=== PATIENT | female | born 1930 | race Caucasian/White ===

== ENCOUNTER 2017-02-27 11:49 | Emergency (ER) | payer MEDICARE ==
--- NOTE | 2017-02-27 13:49 | RAD ---
Indication: Swelling and pain post twisting fall. Comparison: May 02, 2012 RIGHT lower leg radiographs. Technique: AP, mortise, and lateral views RIGHT ankle. Report: Bone density appears decreased throughout. No cortical disruption or suspicious trabecular irregularity to suggest fracture. Normal articular alignment. No suggestion of talocrural joint effusion. Polyarticular degenerative arthropathy with joint space narrowing most prominent at the talonavicular articulation where it is severe with associated prominent dorsal osteophytosis as well as subchondral sclerosis and cystic change. Soft tissue swelling most prominent over the lateral malleolus. IMPRESSION: Lateral soft tissue swelling without evidence for fracture or malalignment.
--- NOTE | 2017-02-27 13:59 | UC ---
Lower Extremity/Ankle HPI - HPI Summary HPI Summary: patient tripped rolling her right ankle in and under her body, two days ago, large amount of swelling on the top and lateral side of her right foot. - History of Current Complaint Hx Obtained From: Patient ?: No Onset/Duration: Sudden Onset, Lasting Days Severity Initially: Moderate Severity Currently: Moderate Aggravating Factor(s): Standing, Ambulation Alleviating Factor(s): Rest Able to Bear Weight: Yes - Risk Factors Gout Risk Factors: Negative <Fawn Fam - Last Filed: 02/27/17 13:54> <Mojgan Rivera - Last Filed: 02/27/17 14:10> - History of Current Complaint Chief Complaint: UCLowerExtremity Stated Complaint: FOOT INJURY Time Seen by Provider: 02/27/17 13:09 - Allergies/Home Medications Allergies/Adverse Reactions: Allergies Allergy/AdvReac Type Severity Reaction Status Date / Time Amoxicillin [From Augmentin] Allergy Intermediate GI Upset Verified 02/27/17 13: 19 Clavulanic Acid Allergy Intermediate GI Upset Verified 02/27/17 13:19 [From Augmentin] Penicillins [PCN] Allergy Intermediate GI Upset Verified 02/27/17 13:19 Sulfa Drugs Allergy Intermediate GI Upset Verified 02/27/17 13:19 Antihemophilic Factor Allergy GI Upset Verified 02/27/17 13:19 [From Recombinate] Hydrocodone Allergy Nausea And Verified 02/27/17 13:19 Vomiting PMH/Surg Hx/FS Hx/Imm Hx Previously Healthy: Yes Cardiovascular History Of: Reports: Cardiac Disorders - pace maker, Hypertension , Pacemaker/ICD, Congestive Heart Failure GI/ History Of: Reports: Kidney Stones - BILATERAL Cancer History Of: Denies: Breast Cancer - Surgical History Surgical History: Yes Surgery Procedure, Year, and Place: hysterectomy, pacemaker, knee and foot surgery. LEFT KNEE MENISCUS 2006 - Family History Known Family History: Positive: Hypertension - Social History Alcohol Use: Occasionally Alcohol Amount: GLASS WINE Substance Use Type: None Smoking Status (MU): Never Smoked Tobacco Have You Smoked in the Last Year: No <Fawn Fam - Last Filed: 02/27/17 13:54> Review of Systems Constitutional: Negative Skin: Bruising Eyes: Negative ENT: Negative Respiratory: Negative Cardiovascular: Negative Gastrointestinal: Negative Genitourinary: Negative Motor: Negative Neurovascular: Decreased Sensation - top fo foot and toes Musculoskeletal: Arthralgia, Edema, Myalgia Neurological: Negative Psychological: Negative All Other Systems Reviewed And Are Negative: Yes <Fawn Fam - Last Filed: 02/27/17 13:54> Physical Exam Triage Information Reviewed: Yes Appearance: Well-Appearing, Well-Nourished, Pain Distress Vital Signs: Initial Vital Signs Temp 97.4 F 02/27/17 13:14 Pulse 93 02/27/17 13:14 Resp 16 02/27/17 13:14 BP 167/77 02/27/17 13:14 Pulse Ox 96 02/27/17 13:14 Vital Signs Reviewed: Yes Eye Exam: Normal Eyes: Positive: Conjunctiva Clear ENT Exam: Normal ENT: Positive: Hearing grossly normal, Pharynx normal, TMs normal Dental Exam: Normal Neck exam: Normal Neck: Positive: Supple, Nontender, No Lymphadenopathy Respiratory Exam: Normal Respiratory: Positive: Chest non-tender, Lungs clear, Normal breath sounds Cardiovascular Exam: Normal Cardiovascular: Positive: RRR, No Murmur, Pulses Normal Abdominal Exam: Normal Abdomen Description: Positive: Nontender, No Organomegaly, Soft Bowel Sounds: Positive: Present Musculoskeletal: Positive: ROM Limited @ - in dorsi flexion and pronation, Edema @ - right ankle Neurological Exam: Normal Neurological: Positive: Alert, Muscle Tone Normal Psychological Exam: Normal Skin: Positive: Other - brusiing on top of right foot <Fawn Fam - Last Filed: 02/27/17 13:54> Vital Signs: Initial Vital Signs Temp 97.4 F 02/27/17 13:14 Pulse 93 02/27/17 13:14 Resp 16 02/27/17 13:14 BP 167/77 02/27/17 13:14 Pulse Ox 96 02/27/17 13:14 <Mojgan Rivera - Last Filed: 02/27/17 14:10> Lower Extremity Course/Dx - Course Course Of Treatment: hx obtained, exam performed, meds reviewed, dacia and gel spint applied. - Differential Dx/Diagnosis Differential Diagnosis/HQI/PQRI: Arthritis, Contusion, Dislocation, Fracture ( Closed), Infection, Sprain, Strain Provider Diagnoses: right lateral ankle sprain. foot swelling <Fawn Fam - Last Filed: 02/27/17 13:54> Discharge <Fawn Fam - Last Filed: 02/27/17 13:54> <Mojgan Rivera - Last Filed: 02/27/17 14:10> - Discharge Plan Condition: Stable Disposition: HOME Patient Education Materials: Ankle Sprain (ED), Ankle Stirrup Splint (ED) Referrals: Arin Guzman MD [Primary Care Provider] - Additional Instructions: 1. rest, heat the areawith warm foot soaks, use dacia wrap for compression when up and around 2. continue with ibuprofen for pain. Attestation Statement User Type: Provider - I was available for consult. This patient was seen by the SUZI. The patient was not presented to, seen by, or examined by me. <Mojgan Rivera - Last Filed: 02/27/17 14:10>
[2017-02-27 14:16] VITALS: BP 142/74
== END 2017-02-27 14:15 | disposition home or self-care (01) ==
LOC: UCEAST 11:49
DX: S93.401A Sprain of unspecified ligament of right ankle, initial encounter (principal); W01.0XXA Fall on same level from slipping, tripping and stumbling without subsequent striking against object, initial encounter; M25.474 Effusion, right foot; I10 Essential (primary) hypertension; I50.9 Heart failure, unspecified; Z87.442 Personal history of urinary calculi; Z95.0 Presence of cardiac pacemaker; Z88.5 Allergy status to narcotic agent; Z88.3 Allergy status to other anti-infective agents; Z88.0 Allergy status to penicillin; Z88.2 Allergy status to sulfonamides
CPT/HCPCS: 99213; G0463

== ENCOUNTER → 2019-05-01 08:01 | Day surgery (SDC) | payer MEDICARE ==
[~2019-05-01 08:01] MED LIST: Clindamycin 600 MG IVPREMIX(* 600 MG/50 ML SDV IV ONE; Lidocaine 1% INJ* 10 MG/ML 30 ML SDV ONE; Midazolam* 1 MG/ML 5 ML VIAL (5 MG) ONE; fentaNYL* 50 MCG/ML 2 ML VIAL (100 MCG VIAL) ONE
[2019-05-01 12:15] VITALS: BP 172/74
--- NOTE | 2019-05-02 11:37 | OP ---
DATE OF OPERATION: 05/01/19 - [facility] CATH DATE OF : 30 SURGEON: Antonella Mccarty MD. ANESTHESIA: MAC. PRE-OP DIAGNOSIS: Sick sinus syndrome with existing pacer replacement. POST-OP DIAGNOSIS: Sick sinus syndrome with existing pacer replacement. OPERATIVE PROCEDURE: Pacemaker generator change. ESTIMATED BLOOD LOSS: Less than 5 cc. COMPLICATIONS: None. INDICATIONS: The indications, risks, and benefits have been discussed with the patient in the office and she was amenable to proceeding. DESCRIPTION OF PROCEDURE: The existing device is in the left subclavian fossa. This area was prepped and draped in the usual sterile fashion and a time-out procedure was called. The patient received Versed and fentanyl and 1% lidocaine, documented separately. Following local anesthesia, using a 10-blade knife an incision was made inferior to the existing incision taking care avoid leads. Using Metzenbaum scissors, the incision was extended to the level of the device. A small shanique was made in the fibrous capsule and using Metzenbaum scissors, again taking care to avoid any leads. The neck was extended medially and laterally. The device was then explanted and leads inspected and appeared without damage. The leads were attached from the existing generator and attached to interrogation device. The pacing and sensing thresholds of both leads were checked and found to be good. The leads were then attached to the new generator. The existing pocket was copiously irrigated. The device was placed in the pocket and closed with 3 layers, interrupted 2-0 resorbable suture, followed by running 2-0 resorbable suture, followed by running 4- 0 resorbable suture, followed by casey and external dressings. The decision was made to use a smaller [employer] device because of the patient' s thin body habitus and thin skin over the superior medial portion of the explanted larger device. FINDINGS: The explanted generator was a [employer], model 5826, serial #[id number], implanted on 04/22/08. The new device is a [employer], model 5820, serial #[id number]. The existing atrial lead was a [employer], model 1888TC/52, serial #[id number]. The existing ventricular lead was a [employer], model 1888TC/58, serial #[id number]. For the atrial lead, there were no P waves sensed. The atrial lead impudence was 359 ohms and the atrial pacing threshold was 0.5 V at 0.4 milliseconds. The existing ventricular lead had R waves sensed at 4.8 millivolts with a ventricular lead impedance of 410 ohms and a ventricular pacing threshold of 1.5 V at 0.4 milliseconds. CONCLUSION: Successful dual-chamber pacemaker generator change without complications. Again, the patient was hemodynamically stable throughout the procedure during recovery and returned to the cardiology holding area. [id number]/CPS #: [id number] CELESTE
== END | disposition home or self-care (01) ==
LOC: CHICATH 08:01
PROVIDERS: ATTEND Specialist
DX: Z45.010 Encounter for checking and testing of cardiac pacemaker pulse generator [battery] (principal); I49.5 Sick sinus syndrome; I48.0 Paroxysmal atrial fibrillation; Z79.899 Other long term (current) drug therapy; Z79.01 Long term (current) use of anticoagulants; Z88.0 Allergy status to penicillin; Z88.8 Allergy status to other drugs, medicaments and biological substances; I34.0 Nonrheumatic mitral (valve) insufficiency; I10 Essential (primary) hypertension; R06.02 Shortness of breath
CPT/HCPCS: 33228; 88300; 99156; 99157; C1785; J2250; J3010

== ENCOUNTER 2019-05-03 14:36 | Inpatient (IN) | payer MEDICARE ==
--- OUTSIDE RECORDS SUMMARY | 2019-05-03 14:55 | XMS REPORT | Continuity of Care Document ---
:1930 External Reference #:[id number] Author Name Segundo Costello M.D. Address [address] [place] [address] Care Team Providers Name Role Phone Arin Guzman M.D. Primary Care Physician Unavailable Payers Date Identification Numbers Payment Provider Subscriber Policy Number: [id number] [facility] Luiza Velez PayID: [id number] [id number] [place] [id number] Problems Active Problems Provider Date Implantation of cardiac pacemaker Onset: Arthritis Onset: Allergic rhinitis Onset: Type 2 diabetes mellitus Onset: Tear film insufficiency Raudel Blum M.D. Onset: 03/13/2015 Pseudophakia Raudel Blum M.D. Onset: 03/13/2015 Carcinoma of bladder Onset: Malignant melanoma of skin of face Onset: Vitreous degeneration Kirsten Martinez O.D. Onset: 03/13/2015 Diplopia Kirsten Martinez O.D. 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 Solution Vitamin C 1 by mouth every Unknown 500mg Capsules day Dilt-XR Take 1 Capsule By Unknown 120mg Caps ER Mouth Every Day 24HR Fluocinonide Apply 1 To 2 Unknown 0.05% Times Every Day Solution as Needed For Itch For Up To Two Weeks Then Break For 1 Week Ipratropium [place] 2 Sprays Unknown 0.06% Into Each Nostril Solution Two Times Daily Eliquis Unknown 5mg Tablets Multaq Unknown 400mg Tablets Fluticasone Propionate Unknown Multiple Vitamin Unknown Tablets History Medications Aspirin Unknown - 81mg Tablets 03/10/2019 Diltiazem HCL Unknown - 03/10/2019 Ipratropium [place] Unknown - 03/10/2019 Viactiv Unknown - 12/13/2015 Refresh 1 drop ou twice Kirsten JRiki - daily Michelle O.Salvador 03/10/2019 Methocarbamol Take 1 Tablet By Unknown - 500mg Tablets Mouth AT Bedtime as 03/10/2019 Needed (Muscle Relaxer) Triamcinolone Acetonide Apply Two Times Unknown - 0.1% Daily as Needed For 03/10/2019 Cream Itching Fluzone High-Dose To Be Given By Unknown - 0.5ml Yakelin Pharmacist Per 03/10/2019 Standing Order Procedures Date Code Description Status 03/11/2019 39608 Est Patient Comprehensive Exam Completed 03/25/2016 54278 Est Patient Comprehensive Exam Completed 12/14/2015 54786 Determination Of Refractive State Completed 09/21/2015 46892 Determination Of Refractive State Completed 09/21/2015 35663 Est Patient Comprehensive Exam Completed 03/13/2015 86520 Est Patient Comprehensive Exam Completed 02/26/2013 89843 Est Patient Comprehensive Exam Completed 10/28/2011 86173 Est Patient Comprehensive Exam Completed 09/16/2010 14863 Est Patient Comprehensive Exam Completed Encounters Type Date Location Provider Dx Diagnosis Office Visit 12/14/2015 Royal Weston MD, Kirsten Martinez, H53.2 Diplopia 11:00a russell See Plan of Treatment 04/16/2019 - Segundo Costello M.D.H53.2 DiplopiaComments:Smoking can increase the risk of developing or worsening any eye related disease, as well as affect your overall health. If you are a smoker, we strongly recommend that you quit.If you are not a smoker, we strongly recommend that you do not start.E11.9 Type 2 diabetes mellitus without complicationsFollow up:1 Year Follow Up DFE You can expect to have your eyes dilated at your next visit. If Dr. Costello orders any additional testing, it may require extra time. We recommend that you bring sunglasses, as dilation drops often make you light sensitive until they wear off. We always recommend you bring someone to drive you home if you are uncomfortable driving with your eyes dilated. If you have any questions before your next visit, feel free to call our office at .
--- OUTSIDE RECORDS SUMMARY | 2019-05-03 14:55 | XMS REPORT | Continuity of Care Document ---
:1930 External Reference #:[id number] Author Name Zohra Marcelo Care Team Providers Name Role Phone Chetan Guzman MD Primary Care Physician Unavailable Payers Date Identification Numbers Payment Provider Subscriber Policy Number: [id number] [employer] Mason Lito Velez PayID: [id number] [address] [address] Attn: [place] [address] Effective: 1999 Policy Number: [id number] Medicare [place] Lito Velez Expires: 2017 PayID: [id number] [address] [place] [address] Effective: 2014 Policy Number: [facility] Lito Velez [id number] Expires: 2017 PayID: [id number] [address] [place] [address] Problems Active Problems Provider Date Sinus node dysfunction Antonella Mccarty M.D. Onset: 08/19/2013 Atrial fibrillation Antonella Mccarty M.D. Onset: 08/19/2013 Difficulty breathing Antonella Mccarty M.D. Onset: 08/19/2013 Cardiac pacemaker in situ Antonella Mccarty M.D. Onset: 09/23/2013 Mitral valve disorder Antonella Mccarty M.D. Onset: 09/23/2013 Syncope and collapse Antonella Mccarty M.D. Onset: 01/06/2014 Aortic valve disorder Antonella Mccarty M.D. Onset: 03/03/2014 Localized, primary osteoarthritis Sandi Alexis, M.D. Onset: 08/10/2015 Localized, primary osteoarthritis of the pelvic Sandi Espinoza M.D. Onset: 03/2015 region and thigh Knee joint effusion Sandi Espinoza M.D. Onset: 08/10/2015 Essential hypertension Antonella Mccarty M.D. Onset: 09/07/2015 Paroxysmal atrial fibrillation Antonella Mccarty M.D. Onset: 02/10/2017 Trochanteric bursitis Sandi Espinoza M.D. Onset: 08/03/2018 Gluteal tendinitis Sandi Espinoza M.D. Onset: 08/03/2018 Family History Date Family Member(s) Observation Comments General Cancer General Heart Disease father, bro General Aortic Stenosis Father due to Heart Disease () - and lung disease; age 72 Mother due to Heart Disease () - age 73 Siblings 1 Sister- NILS Douglas implanted 10/24 First Brother due to asbestosis () - at age 70 Third Brother due to Unknown Causes () - was born crippled and at age 25 First Sister due to Heart Disease () - and lung disease, at age 70 Paternal Grandmother due to Isabel's () chorea Social History Type Date Description Comments Sex Unknown Marital Status Lives With Alone Occupation Retired Tobacco Use Start: Unknown Never Smoked Pt denies ever Cigarettes smoking cigar, pipe, e-cigarettes, or using chewing tobacco. 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 Eliquis 1 tablet by 60tabs Antonella Mccarty, 02/21/2018 2.5mg Tablets mouth twice a M.D. day. blood thinner. Multaq 1 by mouth 180tabs Antonella Mccarty, 11/12/2012 400mg Tablets twice a day M.D. Diltiazem HCL ER 1 by mouth 90caps Antonella Mccarty, 11/12/2012 120mg twice a day M.D. Caps ER 24HR Multivitamins 1 po qd 90tabs Celekeara Fierro, 09/10/2009 Tablets M.D. Ipratropium [place] 2 sprays bid Unknown prn Nasal [place] Fluticasone Propionate 2 sprays each Unknown nostril bid 50mcg/Act Suspension Vit C 1 po qd Unknown 1000mg Tablets Viactiv 2 po qd Unknown Chewtabs Vitamin D3 1 by mouth Unknown 1000Unit every day Tablets History Medications Azithromycin 2 tabs po on 6tabs 461.0 Cele Vadim, 01/08/2010 - 250mg day 1; 1 tab po M.D. 08/19/2013 Tablets qd on days 2-5 Ranitidine HCL 1 tab po bid 60tabs 787.1 [facility], 09/10/2009 - 150mg prn M.D. 09/20/2013 Tablets Viactiv Multi-Vitamin 1 po bid 60units Cele Fierro, 09/10/2009 - M.D. Unknown Chewtabs Sotalol HCL 1 po bid Cele Vadim, 09/10/2009 - 80mg M.D. 11/12/2012 Tablets Aspirtab 1 tab po daily 30tabs Cele Vadim, 09/10/2009 - 324mg Tablets M.D. 08/19/2013 DR Melatonin 1 po qhs 90caps Unknown - 3mg Capsules 04/07/2015 Oxygen hs Unknown - 09/07/2014 Aspirin 81 One daily Unknown - 03/05/2018 Carisoprodol 1 tab by mouth Unknown - 250mg daily prn 04/07/2015 Tablets Tramadol HCL 1-2 tablets Unknown - 50mg every 6 hours 04/07/2015 Tablets as needed Vitamin D-3 1 by mouth Unknown - 5000Unit every day 01/31/2019 Tablets Flonase Allergy spray 1 spray Unknown - Relief in each nostril 01/18/2018 50mcg/Act daily Suspension Medications Administered in Office Medication SIG Qnty Indications Ordering Provider Date Depomedrol 40MG Sandi Espinoza M.D. 02/08/2019 Injection Depomedrol 40MG Sandi Espinoza M.D. 08/03/2018 Injection Depomedrol 80MG Sandi Espinoza M.D. 04/17/2015 Injection Depomedrol 80MG Sandi Espinoza M.D. 04/08/2015 Injection Technetium TC 99M Tetrofosmin, Per Antonella Mccarty M.D. 09/02/2013 Unit Dose Up To 40 Millicuries Injection Immunizations CPT Code Status Date Vaccine Lot # [id number] Given 09/10/2009 Pneumonia Vaccine [id number] Vital Signs Date Vital Result Comment 04/26/2019 2:33pm Height 63.75 inches 5'3.75" Weight 123.75 lb with shoes Heart Rate 64 /min regular, radial BP Systolic Sitting 148 mmHg LA, reg cuff BP Diastolic Sitting 62 mmHg LA, reg cuff BP Systolic Standing 120 mmHg LA, reg cuff BP Diastolic Standing 70 mmHg LA, reg cuff BMI (Body Mass Index) 21.4 kg/m2 Ejection Fraction 65% echo 07/25/14 02/08/2019 3:01pm Height 63.75 inches 5'3.75" Weight 123.00 lb Heart Rate 69 /min BP Systolic 136 mmHg BP Diastolic 60 mmHg Respiratory Rate 16 /min Body Temperature 98.0 F Pain Level 9 BMI (Body Mass Index) 21.3 kg/m2 02/01/2019 1:42pm Height 63.25 inches 5'3.25" Weight 124.00 lb w/o shoes Heart Rate 76 /min BP Systolic Sitting 130 mmHg Lue reg cuff BP Diastolic Sitting 68 mmHg Lue reg cuff BP Systolic Standing 135 mmHg Lue reg cuff BP Diastolic Standing 70 mmHg Lue reg cuff Respiratory Rate 16 /min BMI (Body Mass Index) 21.8 kg/m2 08/03/2018 1:35pm Height 63.25 inches 5'3.25" Weight 122.00 lb Heart Rate 72 /min BP Systolic 116 mmHg BP Diastolic 64 mmHg BMI (Body Mass Index) 21.4 kg/m2 06/29/2018 11:50am Height 63.25 inches 5'3.25" Weight 120.00 lb Heart Rate 78 /min BP Systolic Sitting 140 mmHg lue reg cuff BP Diastolic Sitting 68 mmHg lue reg cuff BP Systolic Standing 132 mmHg BP Diastolic Standing 68 mmHg Respiratory Rate 16 /min BMI (Body Mass Index) 21.1 kg/m2 Ejection Fraction 65% 07/25/2014 echo 01/19/2018 11:16am Height 63.25 inches 5'3.25" Weight 121.38 lb W/Boots Heart Rate 72 /min BP Systolic 140 mmHg L/Arm Reg Cuff BP Diastolic 78 mmHg L/Arm Reg Cuff BP Systolic Standing 138 mmHg L/Arm Reg Cuff BP Diastolic Standing 74 mmHg L/Arm Reg Cuff BMI (Body Mass Index) 21.3 kg/m2 Ejection Fraction 65% Echocardiogram 07/25/2014 04/07/2017 8:06am Height 63.25 inches 5'3.25" Weight 123.38 lb w/o shoes Heart Rate 66 /min BP Systolic Sitting 126 mmHg LA reg cuff BP Diastolic Sitting 64 mmHg LA reg cuff BP Systolic Standing 130 mmHg LA reg cuff BP Diastolic Standing 68 mmHg LA reg cuff BMI (Body Mass Index) 21.7 kg/m2 Ejection Fraction 65% echo 07/25/14 02/10/2017 10:21am Height 63.25 inches 5'3.25" Weight 123.00 lb w/o shoes Heart Rate 60 /min reg BP Systolic Sitting 122 mmHg Rue, reg cuff BP Diastolic Sitting 80 mmHg Rue, reg cuff BP Systolic Standing 128 mmHg Rue BP Diastolic Standing 78 mmHg Rue Respiratory Rate 16 /min BMI (Body Mass Index) 21.6 kg/m2 Ejection Fraction 65% as of 07/2014 echo 04/29/2016 8:54am Height 63.25 inches 5'3.25" Weight 124.00 lb Heart Rate 70 /min BP Systolic 132 mmHg Ra reg cuff BP Diastolic 72 mmHg Ra reg cuff BMI (Body Mass Index) 21.8 kg/m2 Ejection Fraction 65% echo 07/25/14 09/07/2015 8:03am Height 63.25 inches 5'3.25" Weight 124.00 lb w/o shoes Heart Rate 70 /min reg BP Systolic Sitting 126 mmHg Rue, reg cuff BP Diastolic Sitting 70 mmHg Rue, reg cuff BP Systolic Standing 120 mmHg Rue BP Diastolic Standing 70 mmHg Rue Respiratory Rate 18 /min BMI (Body Mass Index) 21.8 kg/m2 Ejection Fraction 65% as of echo 08/10/2015 8:45am Height 63.25 inches 5'3.25" Weight 122.00 lb Pain Level 8 BMI (Body Mass Index) 21.4 kg/m2 06/08/2015 10:47am Height 63.25 inches 5'3.25" Weight 122.00 lb Heart Rate 71 /min BP Systolic 133 mmHg BP Diastolic 69 mmHg Pain Level 0 BMI (Body Mass Index) 21.4 kg/m2 04/17/2015 8:08am Height 63.25 inches 5'3.25" Weight 122.00 lb Heart Rate 83 /min BP Systolic 122 mmHg BP Diastolic 73 mmHg Pain Level 0 BMI (Body Mass Index) 21.4 kg/m2 04/08/2015 1:26pm Height 63.25 inches 5'3.25" Weight 122.00 lb Heart Rate 78 /min BP Systolic 134 mmHg BP Diastolic 65 mmHg Pain Level 7 BMI (Body Mass Index) 21.4 kg/m2 03/23/2015 8:39am Height 63.25 inches 5'3.25" Weight 122.00 lb w/o shoes Heart Rate 70 /min reg BP Systolic Sitting 108 mmHg LA, reg cuff BP Diastolic Sitting 60 mmHg LA, reg cuff BP Systolic Standing 110 mmHg LA BP Diastolic Standing 60 mmHg LA Respiratory Rate 16 /min BMI (Body Mass Index) 21.4 kg/m2 Ejection Fraction 65% 07/25/2014 09/08/2014 7:58am Height 63.25 inches 5'3.25" Weight 121.00 lb no shoes Heart Rate 68 /min BP Systolic Sitting 120 mmHg LA, reg cuff BP Diastolic Sitting 80 mmHg LA, reg cuff BP Systolic Standing 112 mmHg LA BP Diastolic Standing 74 mmHg LA Respiratory Rate 16 /min BMI (Body Mass Index) 21.3 kg/m2 03/03/2014 8:02am Height 63.25 inches 5'3.25" Weight 119.00 lb without shoes Heart Rate 68 /min BP Systolic Sitting 120 mmHg LA reg cuff BP Diastolic Sitting 66 mmHg LA reg cuff BP Systolic Standing 104 mmHg LA reg cuff BP Diastolic Standing 66 mmHg LA reg cuff Respiratory Rate 17 /min BMI (Body Mass Index) 20.9 kg/m2 01/06/2014 3:52pm Height 64 inches 5'4" Weight 120.50 lb Heart Rate 64 /min reg BP Systolic Sitting 150 mmHg reg cuff right arm BP Diastolic Sitting 84 mmHg reg cuff right arm BP Systolic Standing 138 mmHg reg cuff right arm BP Diastolic Standing 86 mmHg reg cuff right arm BMI (Body Mass Index) 20.7 kg/m2 09/23/2013 7:56am Height 63.5 inches 5'3.50" Weight 120.00 lb Heart Rate 72 /min BP Systolic Sitting 122 mmHg Ra reg cuff BP Diastolic Sitting 74 mmHg Ra reg cuff BP Systolic Standing 114 mmHg Ra BP Diastolic Standing 70 mmHg Ra Respiratory Rate 18 /min BMI (Body Mass Index) 20.9 kg/m2 08/19/2013 10:53am Height 64 inches 5'4" Weight 123.50 lb Heart Rate 76 /min regular BP Systolic Sitting 134 mmHg reg cuff, right arm BP Diastolic Sitting 70 mmHg reg cuff, right arm BP Systolic Standing 126 mmHg reg cuff right arm BP Diastolic Standing 70 mmHg reg cuff right arm Respiratory Rate 20 /min BMI (Body Mass Index) 21.2 kg/m2 01/08/2010 2:52pm Weight 127.00 lb Heart Rate 72 /min BP Systolic Sitting 132 mmHg BP Diastolic Sitting 70 mmHg Respiratory Rate 18 /min Body Temperature 98.2 F 09/10/2009 8:52am Weight 124.00 lb Heart Rate 72 /min BP Systolic Sitting 146 mmHg BP Diastolic Sitting 88 mmHg Respiratory Rate 16 /min Body Temperature 98.6 F Results Test Date Facility Test Result H/L Range Note Vitamin D 1,25 04/07/2017 [facility] Vitamin D Total 63.9 ng/mL High 30-50 1 And Vitamin D,[address]) [place], [place] [id number] [phone] Vitamin D, 1,25 Dihydroxy 52 pg/mL N 18-78 2 Thyroid Panel 02/10/2017 [facility] Free T4 (Free 0.96 ng/dL N 0.61-1.[address] Thyroxine) [place] [address] [phone] Thyroxine 7.78 ?g/dL N 6.09-12.23 TSH (Thyroid Stim Horm) 1.88 mcIU/mL N 0.34-5.60 Vitamin B12 And 02/10/2017 [facility] Vitamin B12 1006 pg/mL High 180-917 3 Folate Serum [address] [place] [address] [phone] Folic Acid (Folate) > 20.00 ng/mL N >3.99 Comp Metabolic Panel 02/10/2014 [facility] Sodium 137 mmol/L N 133-145 [address] [place] [address] [phone] Potassium 3.7 mmol/L N 3.7-5.6 Chloride 103 mmol/L N 101-111 Co2 Carbon Dioxide 29 mmol/L N 22-32 Anion Gap 5 mmol/L N 2-11 Glucose 131 mg/dL High 70-100 Blood Urea Nitrogen 22 mg/dL N 6-24 Creatinine 0.92 mg/dL N 0.51-0.95 BUN/Creatinine Ratio 23.9 High 8-20 Calcium 8.8 mg/dL N 8.6-10.3 Total Protein 6.8 g/dL N 6.4-8.9 Albumin 3.9 g/dL N 3.2-5.2 Globulin 2.9 g/dL N 2-4 Albumin/Globulin Ratio 1.3 N 1-3 Total Bilirubin 0.30 mg/dL N 0.2-1.0 Alkaline Phosphatase 78 U/L N 34-104 Alt 13 U/L N 7-52 Ast 19 U/L N 13-39 Egfr Non- 58.3 N >60 Egfr 75.0 N >60 4 Laboratory test 02/10/2014 [facility] Phosphorus 3.9 mg/dL N 2.5-5.0 finding [address] [place] [address] [phone] Magnesium 1.8 mg/dL Low 1.9-2.7 Creatine Kinase 68 U/L N 10-223 Vitamin B12 667 pg/mL N 180-914 5 Folate > 20.00 ng/mL N >3.99 Free T4 0.80 ng/mL N 0.61-1.12 T4 7.00 g/dL N 6.09-12.23 TSH (Thyroid Stimulating Horm) 2.20 IU/mL N 0.34-5.60 Erythrocyte Sed Rate 16 mm/Hr N 0-40 Aldolase 5.9 U/L N <7.7 6 Homocysteine 8 mcmol/L N 7 T3 Uptake 36 % N 20 - 37 8 Urinalysis W/Microscopic 02/10/2014 [facility] Urine Color Yellow [address] [place] [address] [phone] Urine Appearance Clear N Urine Specific [place] 1.006 Low 1.010-1.030 Urine Esterase Negative N Negative Urine Nitrate Negative N Negative Urine Urobilinogen Negative E.U./dL N Negative Urine Protein Negative mg/dL N Negative Urine pH 5.0 N 5-9 Urine Blood Negative N Negative Urine Ketones Negative mg/dL N Negative Urine Bilirubin Negative N Negative Urine Glucose Negative mg/dL N Negative Urine WBC None Seen N None Seen Urine RBC None Seen N None Seen Urine Epithelial Cells 1+ Squamous /hpf N None Seen Bacteria Urine None Seen N None Seen Urine Culture And 02/10/2014 [facility] Urine Culture (SEE NOTE ) [address] [place] [address] [phone] Urinalysis 01/03/2014 [facility] Urine Color Yellow [address] [place] [address] [phone] Urine Appearance Clear Urine Specific [place] 1.042 High 1.010-1.030 Urine Esterase Trace Abnormal Negative Urine Nitrate Negative Negative Urine Urobilinogen Negative E.U./dL Negative Urine Protein Negative mg/dL Negative Urine pH 7.0 5-9 Urine Blood Negative Negative Urine Ketones Negative mg/dL Negative Urine Bilirubin Negative Negative Urine Glucose Negative mg/dL Negative Urine Microscopic 01/03/2014 [facility] Urine WBC 1+ (<[address] /hpf) [place] [address] [phone] Urine RBC None Seen None Seen Urine Mucus Present /lpf Absent Urine Epithelial Cells 1+ Squamous /hpf None Seen Bacteria Urine 1+ None Seen CBC Auto Diff 01/03/2014 [facility] White Blood 8.2 10^3/uL 4.8-10.[address] [place] [address] [phone] Red Blood Count 4.35 10^6/uL 4.0-5.4 Hemoglobin 13.9 g/dL 12.0-16.0 Hematocrit 41 % 35-47 Mean Corpuscular Volume 93 fL 80-97 Mean Corpuscular Hemoglobin 32 pg High 27-31 Mean Corpuscular HGB Conc 34 g/dL 31-36 Red Cell Distribution Width 14 % 10.5-15 Platelet Count 220 10^3/uL 150-450 Mean Platelet Volume 9 um3 7.4-10.4 Abs Neutrophils 6.8 10^3/uL 1.5-7.7 Abs Lymphocytes 1.0 10^3/uL 1.0-4.8 Abs Monocytes 0.3 10^3/uL 0-0.8 Abs Eosinophils 0 10^3/uL 0-0.6 Abs Basophils 0 10^3/uL 0-0.2 Abs Nucleated RBC 0 10^3/uL Granulocyte % 83.2 % High 38-83 Lymphocyte % 12.2 % Low 25-47 Monocyte % 4.2 % 1-9 Eosinophil % 0.1 % 0-6 Basophil % 0.3 % 0-2 Nucleated Red Blood Cells % 0 Laboratory test 01/03/2014 [facility] Magnesium 1.9 mg/dL 1.9 -2.7 finding [address] [place] [address] [phone] Troponin I < 0.01 ng/mL <0.03 10 TSH (Thyroid Stimulating Horm) 1.81 IU/mL 0.34-5.60 Comp Metabolic Panel 01/03/2014 [facility] Sodium 137 mmol/L 133-145 [address] [place] [address] [phone] Potassium 4.0 mmol/L 3.7-5.6 Chloride 103 mmol/L 101-111 Co2 Carbon Dioxide 28 mmol/L 22-32 Anion Gap 6 mmol/L 2-11 Glucose 99 mg/dL 70-100 Blood Urea Nitrogen 13 mg/dL 6-24 Creatinine 0.80 mg/dL 0.51-0.95 BUN/Creatinine Ratio 16.3 8-20 Calcium 9.0 mg/dL 8.6-10.3 Total Protein 7.4 g/dL 6.4-8.9 Albumin 3.9 g/dL 3.2-5.2 Globulin 3.5 g/dL 2-4 Albumin/Globulin Ratio 1.1 1-3 Total Bilirubin 0.60 mg/dL 0.2-1.0 Alkaline Phosphatase 94 U/L 34-104 Alt 11 U/L 7-52 Ast 19 U/L 13-39 Egfr Non- 68.5 >60 Egfr 88.1 >60 11 Laboratory test 01/03/2014 [facility] Activated 28.8 seconds 24.0-36.1 finding [address] [facility] [place] [address] Thrombo Time [phone] Inr/Protime 01/03/2014 [facility] Inr 0.91 0.85-1.06 [address] [place], [place] [address] [phone] Laboratory test 08/22/2012 [facility] Free T4 0.85 NG/ML 0.61 -1.24 finding [address] [place] [address] [phone] Total T3 1.18 NG/ML 0.5-1.7 TSH (Thyroid Stimulating Horm) 1.76 MIU/ML 0.34-5.60 Comp Metabolic Panel 08/22/2012 [facility] Sodium 138 mmol/L 133-145 [address] [place] [address] [phone] Potassium 4.4 mmol/L 3.5-5.0 Chloride 103 mmol/L 101-111 Co2 Carbon Dioxide 30.0 mmol/L 22-32 Anion Gap 5.0 mmol/L 2-11 Glucose 85 mg/dL 70-100 Blood Urea Nitrogen 13 mg/dL 6-24 Creatinine 1.00 mg/dL 0.50-1.40 BUN/Creatinine Ratio 13.0 8-20 Calcium 9.1 mg/dL 8.1-9.9 Total Protein 6.5 GM/DL 6.2-8.1 Albumin 3.7 GM/DL 3.2-5.2 Globulin 2.8 GM/DL 2-4 Albumin/Globulin Ratio 1.3 1-3 Total Bilirubin 0.8 mg/dL 0.1-1.0 12 Alkaline Phosphatase 83 U/L 30-110 Alt 14 U/L 14-54 Ast 25 U/L 12-42 Egfr Non- 53.2 >60 Egfr 68.4 >60 13 1 Copy Result to: CHETAN GUZMAN ([id number]) 2 ADDITIONAL INFORMATION This test was developed and its performance characteristics determined by [facility] in a manner consistent with CLIA requirements. This test has not been cleared or approved by the U.S. Food and Drug Administration. Test Performed by: [address] [address] 3 Normal Range 180 to 914 Indeterminate Range 145 to 180 Deficient Range <145 4 Because ethnic data is not always readily available, this report includes an eGFR for both -Americans and non- Americans. The National Kidney Disease Education Program (NKDEP) does not endorse the use of the MDRD equation for patients that are not between the ages of 18 and 70, are , have extremes of body size, muscle mass, or nutritional status, or are non- or non-. According to the National Kidney Foundation, irrespective of diagnosis, the stage of the disease is based on the level of kidney function: Stage Description GFR(mL/min/1.73 m(2)) 1 Kidney damage with normal or decreased GFR 90 2 Kidney damage with mild decrease in GFR 60-89 3 Moderate decrease in GFR 30-59 4 Severe decrease in GFR 15-29 5 Kidney failure <15 (or dialysis) 5 Normal Range 180 to 914 Indeterminate Range 145 to 180 Deficient Range <145 6 Test Performed by: [place] [address] Position Classification Specialist: Stef Lincoln III, M.D. 7 -- REFERENCE VALUE -- <=13 (Fasting) Test Performed by: [place] [address] Position Classification Specialist: Stef Lincoln III, M.D. 8 Test Performed by: [address] [address] Position Classification Specialist: Stef Lincoln III, M.D. 9 RUN DATE: 02/12/14 [facility] LAB LIVE PAGE 1 RUN TIME: [address] [place] [id number] Specimen Inquiry Name: MORIS VELEZ : [address]: Chelsi Silver MD Acct: [id number] Unit: [id number] AGE: 83 Location: LAB Re02/10/14 SEX: F Status: REG REF SPEC: [id number] ROB: 02/10/14-1319 [facility] DR: Chelsi Silver MD REQ: [id number] RECD: 02/10/14 STATUS: BLACK KLEIN DR: Antonella Mccarty MD _ SOURCE: URINE SPDESC: ORDERED: Urine Culture QUERIES: Urine Source: Clean Catch Procedure Result Verified Site Urine Culture Final 02/12/14- 1204 ML No Growth Day 2 (<1,000 CFU/mL) END OF REPORT * ML=Testing performed at Main Lab DEPARTMENT OF PATHOLOGY, [address] [place] [address] Adeel Paez M.D. Director [facility] Permit #[id number] 10 Reference Range and Interpretation: TnI (ng/mL) Interpretation Less Than 0.03 ng/mL Not supportive of diagnosis of ND 0.03 - 0.50 ng/mL Indeterminate: suggest serial studies if clinically indicated. Greater than 0.5 ng/mL Consistent with diagnosis of ND 11 Because ethnic data is not always readily available, this report includes an eGFR for both -Americans and non- Americans. The National Kidney Disease Education Program (NKDEP) does not endorse the use of the MDRD equation for patients that are not between the ages of 18 and 70, are , have extremes of body size, muscle mass, or nutritional status, or are non- or non-. According to the National Kidney Foundation, irrespective of diagnosis, the stage of the disease is based on the level of kidney function: Stage Description GFR(mL/min/1.73 m(2)) 1 Kidney damage with normal or decreased GFR 90 2 Kidney damage with mild decrease in GFR 60-89 3 Moderate decrease in GFR 30-59 4 Severe decrease in GFR 15-29 5 Kidney failure <15 (or dialysis) 12 A metabolite of Naproxen, O-desmethylnaproxen, has been shown to interfere with the Jendrassik-Minnie method for measuring total bilirubin. Samples from patients who have taken Naproxen have shown spurious elevation in total bilirubin levels. 13 Because ethnic data is not always readily available, this report includes an eGFR for both -Americans and non- Americans. The National Kidney Disease Education Program (NKDEP) does not endorse the use of the MDRD equation for patients that are not between the ages of 18 and 70, are , have extremes of body size, muscle mass, or nutritional status, or are non- or non-. According to the National Kidney Foundation, irrespective of diagnosis, the stage of the disease is based on the level of kidney function: Stage Description GFR(mL/min/1.73 m(2)) 1 Kidney damage with normal or decreased GFR 90 2 Kidney damage with mild decrease in GFR 60-89 3 Moderate decrease in GFR 30-59 4 Severe decrease in GFR 15-29 5 Kidney failure <15 (or dialysis) Procedures Date Code Description Status 04/12/2019 56125 Interrogation Device Eval In Person W/DR Completed Analysis,Single,Dual,Mul 04/12/2019 62035 Interrogation Device Eval In Person W/DR Completed Analysis,Single,Dual,Mul 02/08/2019 07415 Inject/Drain Joint/Bursa Major W/O US Completed 02/01/2019 52006 Pace Maker Eval W/Iterative Adjment Dual Lead Completed 02/01/2019 94161 Pace Maker Eval W/Iterative Adjment Dual Lead Completed 08/03/2018 01250 Injection Single Tendon Origin/Insertion Completed 06/29/2018 96132 EKG Tracing & Interpretation Completed 05/18/2018 31241 Pace Maker Eval W/Iterative Adjment Dual Lead Completed 05/18/2018 02683 Pace Maker Eval W/Iterative Adjment Dual Lead Completed 01/19/2018 47241 EKG Tracing & Interpretation Completed 11/17/2017 26507 Pace Maker Eval W/Iterative Adjment Dual Lead Completed 11/17/2017 43967 Pace Maker Eval W/Iterative Adjment Dual Lead Completed 06/27/2017 73976 Pace Maker Eval W/Iterative Adjment Dual Lead Completed 02/10/2017 26618 EKG Tracing & Interpretation Completed 02/03/2017 06038 Pace Maker Eval W/Iterative Adjment Dual Lead Completed 08/15/2016 30958 Pace Maker Eval W/Iterative Adjment Dual Lead Completed 04/29/2016 92404 EKG Tracing & Interpretation Completed 02/29/2016 33662 Pace Maker Eval W/Iterative Adjment Dual Lead Completed 09/07/2015 31035 EKG Tracing & Interpretation Completed 08/31/2015 15483 Interrogation Device Eval In Person W/DR Completed Analysis,Single,Dual,Mul 04/17/201549420 Inject/Drain Joint/Bursa Major W/O US Completed 04/08/201554750 Inject/Drain Joint/Bursa Major W/O US Completed 03/23/2015 48839 EKG Tracing & Interpretation Completed 02/09/2015 44723 Pace Maker Eval W/Iterative Adjment Dual Lead Completed 09/12/2014 [id number] Mammogram Completed 08/11/2014 02478 Pace Maker Eval W/Iterative Adjment Dual Lead Completed 07/25/2014 03770 ECHO Transthoracic, Real-Time 2D With Doppler And Color Completed Flow 01/06/2014 59660 Pace Maker Eval W/Iterative Adjment Dual Lead Completed 09/02/2013 40270 Stress Test Completed 09/02/2013 99737 Myocardial Perfusion Imaging Tomographic (Spect) Completed Multiple Studies 08/19/2013 11292 Pace Maker Eval W/Iterative Adjment Dual Lead Completed 08/19/2013 15768 EKG Tracing & Interpretation Completed 07/11/2013 08484 ECHO Transthoracic, Real-Time 2D With Doppler And Color Completed Flow 09/19/2012 66542 ECHO Transthoracic, Real-Time 2D With Doppler And Color Completed Flow 08/21/2012 89763 Pace Maker Eval W/Iterative Adjment Dual Lead Completed 08/21/2012 74899 EKG Tracing & Interpretation Completed Encounters Type Date Location Provider Dx Diagnosis Office Visit 02/08/2019 [facility] Sandi Espinoza, M25.552 Pain in left hip 2:45p Services Of Taj Mendez M76.02 Gluteal tendinitis, left hip M17.12 Unilateral primary osteoarthritis, left knee Office Visit 02/01/2019 2:00p [facility] Antonella Mccarty, Z95.0 Presence of Of [facility] M.DRiki cardiac pacemaker I49.5 Sick sinus syndrome I48.0 Paroxysmal atrial fibrillation Office Visit 08/03/2018 1:30p [facility]opedic Services Sandi Espinoza M25.552 Pain in left Of C.MRikiARiki Mendez hip M70.62 Trochanteric bursitis, left hip M76.02 Gluteal tendinitis, left hip M16.12 Unilateral primary osteoarthritis, left hip Office Visit 06/29/2018 11:20a [facility] Antonella Mccarty, I48.0 Paroxysmal atrial Of [facility] M.D. fibrillation Z95.0 Presence of cardiac pacemaker I49.5 Sick sinus syndrome I10 Essential (primary) hypertension Office Visit 01/19/2018 11:20a [facility] Antonella Mccarty, I49.5 Sick sinus Of [facility] AT [place] M.D. syndrome I48.0 Paroxysmal atrial fibrillation Z95.0 Presence of cardiac pacemaker I10 Essential (primary) hypertension Office Visit 04/07/2017 8:20a [facility] Antonella Mccarty I48.0 Paroxysmal atrial Of [facility] AT [facility] M.D. fibrillation R53.83 Other fatigue M89.9 Disorder of bone, unspecified Office Visit 02/10/2017 10:40a [facility] Antonella Mccarty, Z95.0 Presence of Of [facility] AT [place] M.D. cardiac pacemaker I49.5 Sick sinus syndrome I48.0 Paroxysmal atrial fibrillation R53.83 Other fatigue Office Visit 04/29/2016 9:15a [facility] Monique Banda, I48.0 Paroxysmal atrial Of [facility] [place] fibrillation I10 Essential (primary) hypertension I49.5 Sick sinus syndrome Office Visit 09/07/2015 8:15a [facility] Antonella cMcarty, Z95.0 Presence of Of [facility] M.D. cardiac pacemaker I10 Essential (primary) hypertension I48.0 Paroxysmal atrial fibrillation I49.5 Sick sinus syndrome Office Visit 08/10/2015 Danny Junior M17.12 Unilateral primary 8:45a Services Of Andrea Espinoza osteoarthritis, left C.M.A. knee M16.12 Unilateral primary osteoarthritis, left hip M25.562 Pain in left knee M25.462 Effusion, left knee Office Visit 06/08/2015 10:30a Orthopedic Sandi Espinoza, V54.89 Aftercare, Services Of Andrea [facility]opedic Other C.M.A. 715.15 Osteoarthrosis Localized Prim Pelvic & Thigh 715.16 Osteoarthrosis Localized Prim Lower Leg Office Visit 04/08/2015 1:00p Orthopedic Sandi 715.16 Osteoarthrosis Services Of Andrea Espinoza Localized Prim Lower C.M.A. Leg 715.15 Osteoarthrosis Localized Prim Pelvic & Thigh 844.1 Sprains & Strains Knee Medial Collateral Ligament 726.5 Enthesopathy Of Hip Region Office Visit 03/23/2015 9:00a [facility] Monique Banda, V45.01 Cardiac Pacemaker Of [facility] [place] In Situ Postsurgical 427.81 Sinoatrial Node Dysfunction 427.31 Atrial Fibrillation 424.0 Mitral Valve Disorder Office Visit 09/08/2014 7:45a [place] Antonella Mccarty V45.01 Cardiac Pacemaker Cardiology Of M.D. In Situ [facility] Postsurgical 427.31 Atrial Fibrillation Office Visit 03/03/2014 8:00a [place] Antonella Mccarty 427.31 Atrial Cardiology Of M.D. Fibrillation [facility] 427.81 Sinoatrial Node Dysfunction V45.01 Cardiac Pacemaker In Situ Postsurgical 424.1 Aortic Valve Disorder Office Visit 01/06/2014 3:45p [place] Antonella Mccarty 427.31 Atrial Cardiology Of M.D. Fibrillation [facility] 780.2 Syncope & Collapse Office Visit 09/23/2013 7:45a [place] Antonella Mccarty 427.31 Atrial Cardiology Of M.D. Fibrillation [facility] V45.01 Cardiac Pacemaker In Situ Postsurgical 424.0 Mitral Valve Disorder 786.09 Dyspnea & Respiratory Abnormalities Other Office Visit 08/19/2013 10:30a [place] Antonella Mccarty 427.31 Atrial Cardiology Of M.D. Fibrillation [facility] 427.81 Sinoatrial Node Dysfunction 786.09 Dyspnea & Respiratory Abnormalities Other Office Visit 08/21/[address] [facility] Pacer 427.31 Atrial 8:15a Cardiology Of Schedule Fibrillation [facility] Office Visit 01/08/2010 DO Not Use [facility] Cele 461.0 Sinusitis Acute 3:00p AT Pj Fierro M.D. Maxillary Office Visit 09/10/2009 DO Not Use [facility] Cele 787.1 Heartburn 9:00a AT Pj Fierro M.D. 782.3 Edema 782.0 Skin Sensation Disturbance V03.82 Streptococcus Pneumoniae Vaccination Spec Other Plan of Treatment Future Appointment(s):05/01/2019 4:00 pm - Ica ECHO Schedule at [facility]05/14/2019 11:00 am - Antonella Mccarty M.D. at [facility]05/07/2019 2:00 pm - Maria M Boyce NP at [facility]2018 9:00 am - Antonella Mccarty M.D. at [facility] Of [facility] AT [place]04/26/2019 - Maria M Boyce, NPR06.02 Shortness of breathNew Medication:Furosemide 20 mg - take 1 tablet by mouth daily for 5 days.New Orders:Echocardiogram, Scheduled: Follow up:f/u as planned.Recommendations:Please go directly to [facility] after your visit to get non fasting labs drawn I will call you tonight after they are resulted and direct you on what to do with water pill ( lasix) Weight yourself daily. Limit sodium intake If you get lightheaded, dizzy, pass out or notice a low blood pressure please stop taking water pill and call our practice or seek medical evaluation. I'll speak to you again Mondayand we will determine if we need to re schedule pacemaker generator change.
[2019-05-03] MEDS ORDERED: Ipratropium 0.5MG/2.5ML NEB* 0.5 MG/2.5 ML NEB.SOLN INH PRN (15:49)
[2019-05-03 15:59] LABS: ABS Eosinophils 0.2 10^3/ul (0-0.6); ABS Lymphocytes 2.1 10^3/ul (1.0-4.8); ABS Monocytes 0.7 10^3/ul (0-0.8); ABS Neutrophils 3.2 10^3/ul (1.5-7.7); Hematocrit 40 % (35-47); Hemoglobin 13.8 g/dL (12.0-16.0); Lymphocyte % 34.1 %; Mean Corpuscular HGB Conc 35 g/dL (31-36); Mean Corpuscular Hemoglobin 33 pg (27-31); Mean Corpuscular Volume 96 fL (80-97); Mean Platelet Volume 8.7 fL (7.4-10.4); Nucleated Red Blood Cells % 0.1; Platelet Count 178 10^3/uL (150-450); Red Blood Count 4.15 10^6 /uL (3.70-4.87); Red Cell Distribution Width 14 % (10-15); White Blood Count 6.1 10^3/uL (3.5-10.8)
[2019-05-03] MEDS ORDERED: Vancomycin per Pharmacy* NOTE FOLLOW UP SCH (16:00)
[2019-05-03] MEDS ORDERED: Vancomycin(*) 1,250 MG in NS 0.9% 250 ML* 250 ML IVPB ONE (16:00)
[2019-05-03 16:14] LABS: Albumin 3.9 g/dL (3.2-5.2); Albumin/Globulin Ratio 1.2 (1-3); BUN/Creatinine Ratio 18.5 (8-20); C Reactive Protein 17.14 mg/L (<8.01); EGFR African American 69.7 (>60); EGFR Non-African American 57.6 (>60); Globulin 3.3 g/dL (2-4); Magnesium 2.2 mg/dL (1.9-2.7); Potassium 4.1 mmol/L (3.5-5.0); Total Bilirubin 0.6 mg/dL (0.2-1.0); Total Protein 7.2 g/dL (6.4-8.9)
[2019-05-03 16:54] LABS: INR 1.09 (0.82-1.09)
--- NOTE | 2019-05-03 17:50 | PN ---
Cardiology Progress Note Date of Service: 05/03/19 - ? cellulitis s/p PPM generator change 05.01.2019 8 casey were removed. steri strips applied, Mastisol was used to reinforce steri strips. Edges are well approximated. No oozing, bleedings. rash margins were outlined with marker to r/o expansion. i spoke with nurse Geraldine who is taking care of the patient. She is aware to contact our service if the patient develops bleeding from device site, swelling, oozing. Patient tolerated removal of casey and application of steri strips well. Dr. Mccarty aware and agrees with above assessment and wound care.
--- NOTE | 2019-05-03 18:28 | CONS ---
CONSULTATION REPORT: DATE OF CONSULT: 05/03/19 REQUESTING PHYSICIAN: Dr. Rosales. CONSULTING SERVICE: Infectious Disease. REASON FOR CONSULT: Cellulitis, pacemaker site. IMPRESSION: 1. Recent generator change in the left chest pacemaker, now with slight edema and erythema. No fevers, chills, or sweats. Otherwise, feels well. 2. Sick sinus syndrome and pacemaker. 3. Atrial fibrillation, on Eliquis. 4. Allergy to PENICILLIN. RECOMMENDATIONS: Agree with vancomycin goal trough 10 to 15. Blood cultures, we will follow her exam here. Dr. Mccarty is planning to remove the casey. Follow her C-reactive protein. HISTORY OF PRESENT ILLNESS: This is an 88-year-old woman who had a generator change in her left chest pacemaker on 05/01/19, which she tolerated well. She had clindamycin at that time because of PENICILLIN allergy and then today when seen in the office had a little bit of tenderness, swelling, faint redness, so Dr. Mccarty had her come in to the hospital. She had had some blood cultures taken and she is being started on vancomycin. She has not had any fevers, chills, or sweats and feels well. She has had no drainage from the incision. PAST MEDICAL HISTORY: 1. Sick sinus syndrome and pacemaker placed in the distant past, now with generator change. 2. Atrial fibrillation, on anticoagulation. 3. Depression. 4. Anxiety. 5. Hypertension. 6. Osteoarthritis. PAST SURGICAL HISTORY: 1. Status post hysterectomy and bilateral salpingo-oophorectomy. 2. Bilateral cataract repair. MEDICATIONS: 1. Tylenol. 2. Apixaban. 3. Dronedarone. 4. Diltiazem. 5. Fluticasone nasal spray. 6. Vancomycin. ALLERGIES: PENICILLIN caused her to be ill. FAMILY HISTORY: Coronary artery disease. SOCIAL HISTORY: She lives in [place] by herself. She is a nonsmoker. REVIEW OF SYSTEMS: All negative except as noted above to a 12-point review. PHYSICAL EXAM: Vital Signs: Temperature 37, heart rate 70, respiratory rate 18 , blood pressure 160/70, oxygen saturation 98% on room air. In general, she is awake, not in distress. Neurologic: She is oriented x3. Follows all commands. HEENT: There is no conjunctival hemorrhage. Oropharynx without lesions. Neck is supple without mass. Heart is regular rate and rhythm without murmur. Lungs are clear to auscultation bilaterally. Chest: There is a left chest pacemaker site with incision and casey present. There is slight edema. There is minimal erythema. There is no tenderness to palpation or fluctuance. Abdomen: Soft, nontender, nondistended. There are bowel sounds present. Skin: There is no rash or splinter hemorrhage. Musculoskeletal: There is no spine tenderness to palpation. LABORATORY DATA: White blood cell count 6, hemoglobin 13, platelets 178,000. Please see impression and recommendations outlined above. Thanks for asking me to see Ms. Velez in consultation. [id number]/[facility] #: [id number] [facility]
[2019-05-03 18:31] LABS: Erythrocyte Sed Rate 26 mm/Hr (0-29)
[2019-05-03] MEDS: Apixaban* 2.5 MG TAB PO SCH (21:23)
[2019-05-03] MEDS: Dronedarone TAB* 400 MG PO SCH (21:24)
[2019-05-03] MEDS: Fluticasone NASAL SPRAY 50MCG* 16 gm SPRAY BTL BOTH NARES SCH (21:24)
[2019-05-03] MEDS: Acetaminophen TAB* 325 MG PO PRN (21:28)
[2019-05-03] MEDS: Diltiazem CD CAP* 120 MG PO SCH (21:28)
--- NOTE | 2019-05-04 02:50 | HP ---
HISTORY AND PHYSICAL: DATE OF ADMISSION: 05/03/19 ADMITTING PROVIDER: Collin Rosales MD. PRIMARY CARE PROVIDER: Arin Guzman MD OUTPATIENT SENIOR CLINICAL DATA MANAGER: Antonella Mccarty MD CHIEF COMPLAINT: Redness and tenderness around the pacemaker site in her upper left chest in the setting of recent generator change 2 days prior. HISTORY OF PRESENT ILLNESS: Luiza Velez is an 88-year-old female with past medical history of paroxysmal atrial fibrillation and sick sinus syndrome, on Eliquis, Multaq, diltiazem; disease; hypertension; osteoarthritis; anxiety; depression. She underwent DC permanent pacemaker generator change on 05/01/[address] Mccarty and got IV clindamycin 600 mg that morning and then sent home on 300 mg p.o. t.i.d. She had bleeding from the incision site later that night after she reached for her phone. There were some pain near the incision. On day of admission, she noticed some redness and warmth around the incision and there was concern for cellulitis, which may threaten her pacemaker. She does, of note, have allergies to PENICILLIN, AUGMENTIN, SULFA DRUGS, which all cause GI upset. She was directly admitted to the hospitalist service. Her cardiology team has since been at bedside, removed the casey and put Steri-Strips. She was started on vancomycin, and Dr. David Chanel of Infectious Disease has been consulted. Her initial workup includes, of note , leukocytosis with a white count of 6.1 and CRP of 17.1. She is afebrile. PAST MEDICAL HISTORY: 1. Paroxysmal atrial fibrillation, on Eliquis, Multaq, diltiazem. 2. Hypertension. 3. Osteoarthritis. 4. Anxiety. 5. Depression. 6. Episodes of pleural effusion at the time of original pacemaker implantation. 7. Sick sinus syndrome, 1 to 2+ mitral regurgitation, 2+ tricuspid regurgitation. MEDICATIONS: Include: 1. Tylenol 650 mg p.o. q.6 hours p.r.n. 2. Eliquis 2.5 mg p.o. b.i.d. 3. Cholecalciferol 1000 units p.o. daily. 4. Diltiazem 120 mg p.o. b.i.d. 4. Multaq 400 mg p.o. b.i.d. 5. Flonase 2 sprays both nares b.i.d. 6. Atrovent 0.5 mg inhaled b.i.d. p.r.n. 7. Ascorbic acid 1000 mg p.o. daily. 8. Multivitamin 1 chew p.o. daily. ALLERGIES: AMOXICILLIN/AUGMENTIN, HYDROCODONE, PENICILLIN, SULFA, CLAVULANIC ACID, HUMAN RECOMBINANT ANTIHEMOPHILIC FACTOR VIII (unknown details); the rest cause GI upset. SOCIAL HISTORY: The patient is a never smoker. Denies alcohol use. Never drug use. She was former homemaker. She lives alone. Her medical surrogate is her granddaughter, Doris Adams, who is at bedside. She desires to be full code. REVIEW OF SYSTEMS: A 14-point review of systems is negative except as per HPI. She does attest to some slight dyspnea on exertion, and she last week prior to admission was given 20 mg of Lasix to take for approximately 5 days before the surgery. So, an echocardiogram was ordered. The last one has not been since . She sleeps with 1 pillow, but otherwise can lie down flat. She has not been coughing. No fevers or chills. PHYSICAL EXAMINATION GENERAL APPEARANCE: No acute distress, smiling, in street clothes. VITAL SIGNS: Temperature 98, pulse 69, respiratory rate 18, sat 90%, and blood pressure 163/66. HEENT: Normocephalic, atraumatic. Pupils are equal, round, and reactive to light. Extraocular motions are intact. No scleral icterus. LUNGS: Clear to auscultation bilaterally with no wheezing, rales, or rhonchi. CARDIOVASCULAR: Regular rate and rhythm. No murmurs, rubs, or gallops. ABDOMEN: Soft, nontender, nondistended. EXTREMITIES: Warm, well perfused. No peripheral edema. NEUROLOGIC: Cranial nerves II through XII intact. Moving all extremities. Metalsmith Apprentice strength intact. SKIN: On her left superior chest near her pulmonary pacemaker placement, incision is with casey with little bit of dry blood. No significant fluctuance. There is warmth, tenderness, and erythema that extends laterally to the just below the left axilla. DIAGNOSTIC STUDIES/LAB DATA: White count 6.0, hemoglobin 13.8, hematocrit 40, platelets 178. INR 1.09. ESR pending. Sodium 137, potassium 4.1, chloride 104 , carbon dioxide 28, BUN 17, creatinine 0.92, glucose 97, lactic acid 0.5, calcium 9, magnesium 2.2, total bilirubin 0.6, AST 22, ALT 14, alk phos 77. CRP 17, BNP 84, albumin 3.9. Imaging: None. ASSESSMENT AND PLAN: Luiza Velez is an 88-year-old female with past medical history of paroxysmal atrial fibrillation, on Eliquis and rate control agents, who had a pacemaker generator change 2 days prior with course not completed with suspected cellulitis near the pacemaker incision despite use of p.o. clindamycin at home and IV the day of the replacement. She is being started on vancomycin, and the case was discussed with Dr. David Chanel, who will be consulting on the case. Blood cultures were obtained before the antibiotic was administered. If there is any drainage or bleeding from the pacemaker pocket site, we would culture that as well. There does not seems to be significant hematoma or flatulence at this time, but we will bear close monitoring as she is at risk for losing potentially the device if there is significant infection. In terms of her other medical management for her paroxysmal atrial fibrillation, we will continue her diltiazem 120 mg p.o. b.i.d., Multaq 400 mg p.o. b.i.d. for now and continue her Eliquis 2.5 mg p.o. b.i.d., though with any concern for hematoma development could potentially stop or hold this. Vancomycin will be dosed per pharmacy. She is full code. She can eat a heart healthy diet ad cody. For DVT prophylaxis, she is already on Eliquis and medical surrogate is her granddaughter Susi Adams. She is being admitted to inpatient status. Also for her symptoms of dyspnea on exertion , she is euvolemic on exam. BNP was added and is normal at 84. She is satting well on room air. She is scheduled to have an outpatient echocardiogram and last was performed 5 years ago. If she were to worsen clinically, could consider doing that study inpatient, but it is not clearly indicated at this point in time. [id number]/[facility] #: [id number] [facility]
[2019-05-04 05:37] LABS: ABS Eosinophils 0.3 10^3/ul (0-0.6); ABS Monocytes 0.5 10^3/ul (0-0.8); ABS Neutrophils 2.5 10^3/ul (1.5-7.7); Eosinophil % 4.8 %; Hematocrit 37 % (35-47); Hemoglobin 12.5 g/dL (12.0-16.0); Lymphocyte % 37.9 %; Mean Corpuscular HGB Conc 34 g/dL (31-36); Mean Corpuscular Hemoglobin 33 pg (27-31); Mean Corpuscular Volume 96 fL (80-97); Mean Platelet Volume 8.6 fL (7.4-10.4); Platelet Count 166 10^3/uL (150-450); Red Blood Count 3.85 10^6 /uL (3.70-4.87); Red Cell Distribution Width 14 % (10-15); White Blood Count 5.4 10^3/uL (3.5-10.8)
[2019-05-04 05:55] LABS: Calcium 8.7 mg/dL (8.6-10.3); EGFR African American 83.1 (>60); EGFR Non-African American 68.7 (>60)
[2019-05-04] MEDS: Vancomycin(*) 1,000 MG in NS 0.9% 250 ML* 250 ML IVPB SCH ×2 (06:07→17:26)
[2019-05-04] MEDS: Dronedarone TAB* 400 MG PO SCH ×2 (08:59→20:01)
[2019-05-04] MEDS: Cholecalciferol TAB* 1000 UNITS PO SCH (09:00)
[2019-05-04] MEDS: Apixaban* 2.5 MG TAB PO SCH ×2 (09:00→20:00)
[2019-05-04] MEDS: Diltiazem CD CAP* 120 MG PO SCH ×2 (09:00→17:34)
[2019-05-04] MEDS: Fluticasone NASAL SPRAY 50MCG* 16 gm SPRAY BTL BOTH NARES SCH ×2 (09:01→20:03)
--- NOTE | 2019-05-04 09:24 | PN ---
Subjective Date of Service: 05/04/19 Interval History: No acute events overnight. Afebrile. Hemodynamically stable. Left chest not tender anymore and erythema is improved. Pt refused her Dilt 120mg po BID saying she does not think she is on it ( despite it being on her hand written list, Cardiology outpatient record and a fill at her [facility] 03/18 for 90 tabs). Granddaughter to bring in the bottles. no chest pain, SOB. paced, rate controlled on tele. Objective Active Medications: Acetaminophen (Tylenol Tab*) 650 mg PO Q6H PRN PRN Reason: FEVER/PAIN Last Admin: 05/03/19 21:28 Dose: 325 mg Apixaban (Eliquis*) 2.5 mg PO BID [facility] Last Admin: 05/04/19 09:00 Dose: 2.5 mg Cholecalciferol (Vitamin D Tab*) 1,000 units PO DAILY [facility] Last Admin: 05/04/19 09:00 Dose: 1,000 units Diltiazem HCl (Cardizem Cd Cap*) 120 mg PO BID [facility]; Protocol Last Admin: 05/04/19 09:00 Dose: Not Given Dronedarone (Multaq Tab*) 400 mg PO BID [facility] Last Admin: 05/04/19 08:59 Dose: 400 mg Fluticasone Propionate (Flonase Nasal Josephine 50mcg*) 2 spray BOTH NARES BID [facility] Last Admin: 05/04/19 09:01 Dose: Not Given Vancomycin HCl 1,000 mg/ (Sodium Chloride) 250 mls @ 166.667 mls/hr IVPB Q12H [facility] Last Admin: 05/04/19 06:07 Dose: 166.667 mls/hr Ipratropium [place] (Atrovent 0.5 Mg Neb.Demetra*) 0.5 mg INH BID PRN PRN Reason: SOB/WHEEZING Pharmacy Consult (Vancomycin Per Pharmacy*) 1 note FOLLOW UP .VANC PER PHARMACY [facility]; Protocol Pharmacy Profile Note (Vancomycin Trough Check) 1 note FOLLOW UP 529 ONE Stop: 05/05/19 05:31 Vital Signs - 8 hr 05/04/19 05/04/19 03:50 08:00 Temperature 97.9 F 97.4 F Pulse Rate 70 69 Respiratory 15 16 Rate Blood Pressure 126/57 148/66 (mmHg) O2 Sat by Pulse 97 98 Oximetry Oxygen Devices in Use Now: None Appearance: NAD Eyes: No Scleral Icterus, PERRLA Neck: NL Appearance and Movements; NL JVP Respiratory: Symmetrical Chest Expansion and Respiratory Effort, Clear to Auscultation Cardiovascular: NL Sounds; No Murmurs; No JVD, RRR Abdominal: NL Sounds; No Tenderness; No Distention, No Hepatosplenomegaly Lymphatic: No Cervical Adenopathy Extremities: No Edema Skin: - - less erythema and now nontender in left superior chest near PPM, receded a bit from the demarcation lines. Neurological: Alert and Oriented x 3 Nutrition: Taking PO's Result Diagrams: 05/04/19 05:10 05/04/19 05:10 Additional Lab and Data: Laboratory Results - last 24 hr 05/03/19 05/03/19 05/03/19 15:47 15:47 15:47 WBC 6.1 RBC 4.15 Hgb 13.8 Hct 40 MCV 96 MCH 33 H MCHC 35 RDW 14 Plt Count 178 MPV 8.7 Neut % (Auto) 51.9 Lymph % (Auto) 34.1 [place] % (Auto) 10.7 Eos % (Auto) 3.0 Baso % (Auto) 0.3 Absolute Neuts (auto) 3.2 Absolute Lymphs (auto) 2.1 Absolute Monos (auto) 0.7 Absolute Eos (auto) 0.2 Absolute Basos (auto) 0.0 Absolute Nucleated RBC 0.0 Nucleated RBC % 0.1 ESR 26 INR (Anticoag Therapy) Sodium 137 Potassium 4.1 Chloride 104 Carbon Dioxide 28 Anion Gap 5 BUN 17 Creatinine 0.92 Est GFR ( Amer) 69.7 Est GFR (Non-Af Amer) 57.6 BUN/Creatinine Ratio 18.5 Glucose 97 Lactic Acid 0.5 Calcium 9.0 Magnesium 2.2 Total Bilirubin 0.60 AST 22 ALT 14 Alkaline Phosphatase 77 C-Reactive Protein 17.14 H B-Natriuretic Peptide Total Protein 7.2 Albumin 3.9 Globulin 3.3 Albumin/Globulin Ratio 1.2 05/03/19 05/03/19 05/04/19 15:47 16:12 05:10 WBC 5.4 RBC 3.85 Hgb 12.5 Hct 37 MCV 96 MCH 33 H MCHC 34 RDW 14 Plt Count 166 MPV 8.6 Neut % (Auto) 46.7 Lymph % (Auto) 37.9 [place] % (Auto) 10.0 Eos % (Auto) 4.8 Baso % (Auto) 0.6 Absolute Neuts (auto) 2.5 Absolute Lymphs (auto) 2.0 Absolute Monos (auto) 0.5 Absolute Eos (auto) 0.3 Absolute Basos (auto) 0.0 Absolute Nucleated RBC 0.0 Nucleated RBC % 0.0 ESR INR (Anticoag Therapy) 1.09 Sodium Potassium Chloride Carbon Dioxide Anion Gap BUN Creatinine Est GFR ( Amer) Est GFR (Non-Af Amer) BUN/Creatinine Ratio Glucose Lactic Acid Calcium Magnesium Total Bilirubin AST ALT Alkaline Phosphatase C-Reactive Protein B-Natriuretic Peptide 84 Total Protein Albumin Globulin Albumin/Globulin Ratio 05/04/19 05:10 WBC RBC Hgb Hct MCV MCH MCHC RDW Plt Count MPV Neut % (Auto) Lymph % (Auto) [place] % (Auto) Eos % (Auto) Baso % (Auto) Absolute Neuts (auto) Absolute Lymphs (auto) Absolute Monos (auto) Absolute Eos (auto) Absolute Basos (auto) Absolute Nucleated RBC Nucleated RBC % ESR INR (Anticoag Therapy) Sodium 141 Potassium 4.0 Chloride 109 Carbon Dioxide 28 Anion Gap 4 BUN 15 Creatinine 0.79 Est GFR ( Amer) 83.1 Est GFR (Non-Af Amer) 68.7 BUN/Creatinine Ratio 19.0 Glucose 87 Lactic Acid Calcium 8.7 Magnesium Total Bilirubin AST ALT Alkaline Phosphatase C-Reactive Protein B-Natriuretic Peptide Total Protein Albumin Globulin Albumin/Globulin Ratio Assess/Plan/Problems-Billing Assessment: 88 yo female PMH pAfib/Sick Sinus Syndrome s/p PPM (Eliquis, Multaq, ?Dilt), HTN p/w erythema, tenderness near PPM site (generator changed 2 days prior on ) despite outpatient Clinda (pcn and sulfa allergy). Improving on vancomycin. - Patient Problems (1) Cellulitis of chest wall Current Visit: Yes Status: Acute Code(s): L03.313 - CELLULITIS OF CHEST WALL SNOMED Code(s): 01689606 Comment: s/p failed clinda (given her pcn, sulfa allergies) as outpatient. Improved with vancomycin. Appreciate ID recs f/u BCx (2) Pacemaker complications Current Visit: Yes Status: Acute Code(s): T82.9XXA - UNSP COMP OF CARDIAC AND VASCULAR PROSTH DEV/GRFT, INIT SNOMED Code(s): 905329272 Comment: cellulitis overlying with recent generator change, tx as above. no e/o hematoma appreciate cardiology recs. (3) Paroxysmal A-fib Current Visit: Yes Status: Acute Code(s): I48.0 - PAROXYSMAL ATRIAL FIBRILLATION SNOMED Code(s): 008670317 Comment: Continue Eliquis 2.5mg po BID and Multaq 400mg po BID. she is refusing dilt 120mg po BID despite it being on her own list, Cardiology' s list and recent pharmacy recrods - says she does not take another pill. Granddaughter to bring in pill bottles. continue telemetry. (4) Sick sinus syndrome Current Visit: Yes Status: Acute Code(s): I49.5 - SICK SINUS SYNDROME SNOMED Code(s): 59994992 Comment: s/p PPM, rate + rhythm control. (5) HTN (hypertension) Current Visit: Yes Status: Acute Code(s): I10 - ESSENTIAL (PRIMARY) HYPERTENSION SNOMED Code(s): 38726031 Comment: clarify if dilt - she is refusing. 120-140s SBPs (6) MCKEON (dyspnea on exertion) Current Visit: Yes Status: Acute Code(s): R06.09 - OTHER FORMS OF DYSPNEA SNOMED Code(s): 08548664 Comment: planned outpatient ECHO. BNP here wnl (7) Full code status Current Visit: Yes Status: Acute Code(s): Z78.9 - OTHER SPECIFIED HEALTH STATUS SNOMED Code(s): 202880722 (8) DVT prophylaxis Current Visit: Yes Status: Acute Code(s): Z29.9 - ENCOUNTER FOR PROPHYLACTIC MEASURES, UNSPECIFIED SNOMED Code(s): 934433334 Comment: on eliquis 2.5mg po BID. Status and Disposition: medicine inpatient. continued need for IV vancomycin.
[2019-05-04 20:27] LABS: Urine Appearance Clear; Urine Bilirubin Negative (Negative); Urine Blood Negative (Negative); Urine Color Yellow; Urine Glucose Negative (Negative); Urine Ketones Negative (Negative); Urine Nitrite Negative (Negative); Urine Protein Negative (Negative); Urine Specific Gravity 1.011 (1.010-1.030); Urine Urobilinogen Negative (Negative)
[2019-05-05] MEDS ORDERED: Vancomycin Trough Check NOTE FOLLOW UP ONE (05:30)
[2019-05-05] MEDS: Vancomycin(*) 1,000 MG in NS 0.9% 250 ML* 250 ML IVPB SCH ×2 (05:59→17:29)
[2019-05-05 06:04] LABS: ABS Eosinophils 0.3 10^3/ul (0-0.6); ABS Lymphocytes 1.9 10^3/ul (1.0-4.8); ABS Monocytes 0.6 10^3/ul (0-0.8); ABS Neutrophils 2.6 10^3/ul (1.5-7.7); Eosinophil % 4.9 %; Hematocrit 38 % (35-47); Hemoglobin 13.3 g/dL (12.0-16.0); Lymphocyte % 35.8 %; Mean Corpuscular HGB Conc 35 g/dL (31-36); Mean Corpuscular Hemoglobin 33 pg (27-31); Mean Corpuscular Volume 96 fL (80-97); Mean Platelet Volume 8.4 fL (7.4-10.4); Nucleated Red Blood Cells % 0.1; Platelet Count 174 10^3/uL (150-450); Red Blood Count 4.02 10^6 /uL (3.70-4.87); Red Cell Distribution Width 14 % (10-15); White Blood Count 5.4 10^3/uL (3.5-10.8)
[2019-05-05] MEDS: Cholecalciferol TAB* 1000 UNITS PO SCH (08:30)
[2019-05-05] MEDS: Diltiazem CD CAP* 120 MG PO SCH (08:30)
[2019-05-05] MEDS: Apixaban* 2.5 MG TAB PO SCH ×2 (08:31→20:58)
[2019-05-05] MEDS: Dronedarone TAB* 400 MG PO SCH ×2 (08:31→20:58)
[2019-05-05] MEDS: Fluticasone NASAL SPRAY 50MCG* 16 gm SPRAY BTL BOTH NARES SCH ×2 (08:34→20:58)
[2019-05-05] MEDS: Acetaminophen TAB* 325 MG PO PRN ×2 (11:59→22:16)
--- NOTE | 2019-05-05 12:47 | PN ---
Subjective Interval History: No acute events overnight. some tenderness 8/10 near PPM pocket but not "pain" Afebrile CRP improved to 9.9 from 17.1 no CP/SOB/abdominal pain. UA negative Objective Active Medications: Acetaminophen (Tylenol Tab*) 650 mg PO Q6H PRN PRN Reason: FEVER/PAIN Last Admin: 05/05/19 11:59 Dose: 650 mg Apixaban (Eliquis*) 2.5 mg PO BID [facility] Last Admin: 05/05/19 08:31 Dose: 2.5 mg Cholecalciferol (Vitamin D Tab*) 1,000 units PO DAILY [facility] Last Admin: 05/05/19 08:30 Dose: 1,000 units Diltiazem HCl (Cardizem Cd Cap*) 120 mg PO DAILY [facility]; Protocol Last Admin: 05/05/19 08:30 Dose: 120 mg Dronedarone (Multaq Tab*) 400 mg PO BID [facility] Last Admin: 05/05/19 08:31 Dose: 400 mg Fluticasone Propionate (Flonase Nasal [place] 50mcg*) 2 spray BOTH NARES BID [facility] Last Admin: 05/05/19 08:34 Dose: Not Given Vancomycin HCl 1,000 mg/ (Sodium Chloride) 250 mls @ 166.667 mls/hr IVPB Q12H [facility] Last Admin: 05/05/19 05:59 Dose: 166.667 mls/hr Ipratropium [place]olphin (Atrovent 0.5 Mg Neb.Demetra*) 0.5 mg INH BID PRN PRN Reason: SOB/WHEEZING Pharmacy Consult (Vancomycin Per Pharmacy*) 1 note FOLLOW UP .VANC PER PHARMACY [facility]; Protocol Vital Signs - 8 hr 05/05/19 05/05/19 05/05/19 07:38 08:00 09:44 Temperature 98.3 F 97.8 F Pulse Rate 69 71 Respiratory 18 16 16 Rate Blood Pressure 140/70 124/61 (mmHg) O2 Sat by Pulse 98 97 Oximetry 05/05/19 12:15 Temperature 97.9 F Pulse Rate 70 Respiratory 16 Rate Blood Pressure 141/61 (mmHg) O2 Sat by Pulse 97 Oximetry Oxygen Devices in Use Now: None Appearance: NAD Eyes: No Scleral Icterus, PERRLA Ears/Nose/Mouth/Throat: NL Teeth, Lips, Gums Neck: NL Appearance and Movements; NL JVP Respiratory: Symmetrical Chest Expansion and Respiratory Effort, Clear to Auscultation Cardiovascular: NL Sounds; No Murmurs; No JVD, RRR Lymphatic: No Cervical Adenopathy Extremities: No Edema, - - 1+ nonpitting edema Skin: - - left chest pacer pocket with minimal erythema but is tender to palpation near. Neurological: Alert and Oriented x 3 Nutrition: Taking PO's Result Diagrams: 05/05/19 05:52 05/04/19 05:10 Additional Lab and Data: Laboratory Results - last 24 hr 05/04/19 05/05/19 05/05/19 19:30 05:52 05:52 WBC RBC Hgb Hct MCV MCH MCHC RDW Plt Count MPV Neut % (Auto) Lymph % (Auto) [place] % (Auto) Eos % (Auto) Baso % (Auto) Absolute Neuts (auto) Absolute Lymphs (auto) Absolute Monos (auto) Absolute Eos (auto) Absolute Basos (auto) Absolute Nucleated RBC Nucleated RBC % C-Reactive Protein 9.86 H Urine Color Yellow Urine Appearance Clear Urine pH 5.0 Ur Specific [place] 1.011 Urine Protein Negative Urine Ketones Negative Urine Blood Negative Urine Nitrate Negative Urine Bilirubin Negative Urine Urobilinogen Negative Ur Leukocyte Esterase Negative Urine Glucose Negative Vancomycin Trough 16.5 05/05/19 05:52 WBC 5.4 RBC 4.02 Hgb 13.3 Hct 38 MCV 96 MCH 33 H MCHC 35 RDW 14 Plt Count 174 MPV 8.4 Neut % (Auto) 48.4 Lymph % (Auto) 35.8 [place] % (Auto) 10.3 Eos % (Auto) 4.9 Baso % (Auto) 0.6 Absolute Neuts (auto) 2.6 Absolute Lymphs (auto) 1.9 Absolute Monos (auto) 0.6 Absolute Eos (auto) 0.3 Absolute Basos (auto) 0.0 Absolute Nucleated RBC 0.0 Nucleated RBC % 0.1 C-Reactive Protein Urine Color Urine Appearance Urine pH Ur Specific [place] Urine Protein Urine Ketones Urine Blood Urine Nitrate Urine Bilirubin Urine Urobilinogen Ur Leukocyte Esterase Urine Glucose Vancomycin Trough Microbiology and Other Data: Microbiology 05/03/19 15:47 Blood Venous Aerobic Blood Culture - Preliminary No Growth Day 1 05/03/19 15:47 Blood Venous Anaerobic Blood Culture - Preliminary No Growth Day 1 05/03/19 15:47 Blood Venous Aerobic Blood Culture - Preliminary No Growth Day 1 05/03/19 15:47 Blood Venous Anaerobic Blood Culture - Preliminary No Growth Day 1 Assess/Plan/Problems-Billing Assessment: 88 yo female PMH pAfib/Sick Sinus Syndrome s/p PPM (Eliquis, Multaq, ?Dilt), HTN p/w erythema, tenderness near PPM site (generator changed 2 days prior on ) despite outpatient Clinda (pcn and sulfa allergy). Improving on vancomycin. - Patient Problems (1) Cellulitis of chest wall Current Visit: Yes Status: Acute Code(s): L03.313 - CELLULITIS OF CHEST WALL SNOMED Code(s): 34580454 Comment: s/p failed clinda (given her pcn, sulfa allergies) as outpatient. Improved with vancomycin. Appreciate ID recs f/u BCx - NGTD x24h (2) Pacemaker complications Current Visit: Yes Status: Acute Code(s): T82.9XXA - UNSP COMP OF CARDIAC AND VASCULAR PROSTH DEV/GRFT, INIT SNOMED Code(s): 852179914 Comment: cellulitis overlying with recent generator change, tx as above. PPM pocket with some more soreness today and seems more prominently above skin though no clear hematom. appreciate cardiology recs. (3) Paroxysmal A-fib Current Visit: Yes Status: Acute Code(s): I48.0 - PAROXYSMAL ATRIAL FIBRILLATION SNOMED Code(s): 225079697 Comment: Continue Eliquis 2.5mg po BID and Multaq 400mg po BID.dilt 120mg po daily continue telemetry. (4) Sick sinus syndrome Current Visit: Yes Status: Acute Code(s): I49.5 - SICK SINUS SYNDROME SNOMED Code(s): 09285926 Comment: s/p PPM, rate + rhythm control. (5) HTN (hypertension) Current Visit: Yes Status: Acute Code(s): I10 - ESSENTIAL (PRIMARY) HYPERTENSION SNOMED Code(s): 31909389 Comment: continue dilt 120 (restarted last night) 120-140s SBPs (6) MCKEON (dyspnea on exertion) Current Visit: Yes Status: Acute Code(s): R06.09 - OTHER FORMS OF DYSPNEA SNOMED Code(s): 76832295 Comment: planned outpatient ECHO. BNP here wnl (7) Full code status Current Visit: Yes Status: Acute Code(s): Z78.9 - OTHER SPECIFIED HEALTH STATUS SNOMED Code(s): 524644728 (8) DVT prophylaxis Current Visit: Yes Status: Acute Code(s): Z29.9 - ENCOUNTER FOR PROPHYLACTIC MEASURES, UNSPECIFIED SNOMED Code(s): 284528844 Comment: on eliquis 2.5mg po BID. Status and Disposition: medicine inpatient. continued need for IV vancomycin.
[2019-05-06] MEDS: Vancomycin(*) 1,000 MG in NS 0.9% 250 ML* 250 ML IVPB SCH (05:32)
[2019-05-06] MEDS: Diltiazem CD CAP* 120 MG PO SCH (08:10)
[2019-05-06] MEDS: Cholecalciferol TAB* 1000 UNITS PO SCH (08:10)
[2019-05-06] MEDS: Apixaban* 2.5 MG TAB PO SCH (08:10)
[2019-05-06] MEDS: Dronedarone TAB* 400 MG PO SCH (08:10)
[2019-05-06] MEDS: Fluticasone NASAL SPRAY 50MCG* 16 gm SPRAY BTL BOTH NARES SCH (08:12)
[2019-05-06 08:46] VITALS: BP 148/61
[2019-05-06] MEDS ORDERED: DOXYcycline CAP(*) 100 MG PO ONE (09:22)
--- NOTE | 2019-05-07 20:51 | DS ---
DISCHARGE SUMMARY: DATE OF ADMISSION: 05/03/19 DATE OF DISCHARGE: 05/06/19 DISCHARGE DIAGNOSIS: Chest wall cellulitis. SECONDARY DIAGNOSES: 1. Sick sinus syndrome, status post pacemaker placement, status post generator change on 05/01/19. 2. Paroxysmal atrial fibrillation. 3. Hypertension. 4. Osteoarthritis. 5. Anxiety. 6. Depression. MEDICATIONS: At the time of discharge: 1. Acetaminophen 650 mg p.o. q.6 hours p.r.n. pain or fever. 2. Eliquis 2.5 mg p.o. b.i.d. 3. Vitamin C 1000 mg p.o. daily. 4. Cholecalciferol 1000 units p.o. daily. 5. Diltiazem ER 120 mg p.o. daily. 6. Multaq 400 mg p.o. b.i.d. 7. Fluticasone 2 sprays to both nares b.i.d. 8. Ipratropium HFA 2 puffs inhaled twice a day as needed for shortness of breath and wheezing. 9. Multivitamin 1 tablet p.o. daily. New medication: 1. Doxycycline 100 mg p.o. b.i.d. for 7 more days. HOSPITAL COURSE: Ms. Velez is an 88-year-old lady with past medical history as stated above that had her pacemaker generator change done on 05/01/[address] Mccarty. The patient is allergic to penicillin, so she got intravenous clindamycin before the procedure and was sent home on 300 mg p.o. t.i.d. She does describe some bleeding from the incision site later that night when she reached for her phone. On 05/03/19, she noticed redness and warmth around the incision and there was concern for cellulitis, so she was sent to the emergency room for further workup. Her labs include a CBC with a normal WBC of 6.1, an ESR of 26, a CRP of 17.1. The patient was seen in consultation by Infectious Diseases (Dr. Chanel) and his impression was that the patient had slight edema and erythema on the recent generator change pacemaker site, but he did not think that the patient had a deeper infection, most likely the hematoma and cellulitis of the site. The patient received vancomycin while in the hospital and Dr. hCanel recommended switching to doxycycline on discharge. Maria M Boyce, cardiology nurse practitioner, removed the patient's casey and Steri-Strips were applied. There was no drainage and no bleeding. The patient did well within the hospital. She remained afebrile with stable vital signs. Her white cell count remained normal and her CRP trended down to 9.8. I discussed the case with Dr. Mccarty who felt the patient could be discharged home with the pacemaker generator site open with no dressing and she could wash the area with soap and water. She will follow up with Dr. Mccarty as outpatient to make sure it continues to heal as intended. As discussed above, she will be sent home with doxycycline as recommended by Dr. Chanel. PHYSICAL EXAMINATION: Vital Signs: Temperature 97.3, heart rate 87, respiratory rate is 18, oxygen saturation 97% on room air, blood pressure is 148 /61. General: The patient is a pleasant elderly lady, sitting up in the bed, in no acute distress. CVS: Normal S1, S2. Regular rate and rhythm. Chest: Breath sounds present bilaterally with no added sounds. The left anterior chest wall area around the pacemaker has no significant erythema or warmth at this time. The incision is well approximated with Steri-Strips. No drainage or bleeding. Extremities: No edema. Neuro: She is alert and oriented x3. Able to move all 4 extremities. DIET: Heart-healthy diet. ACTIVITIES: As tolerated. DISPOSITION: To home. STATUS WHILE IN THE HOSPITAL: Inpatient. Please keep in mind this is a summarized version of this patient's hospital stay. If you need more information, please feel free to call me at [phone] or please obtain the full medical records. TIME SPENT: Approximately 45 minutes was spent to complete this discharge. [id number]/[facility] #: [id number] [place]
== END 2019-05-06 10:02 | disposition home or self-care (01) | DRG 863 ==
LOC: MEDTELE 14:52
PROVIDERS: ADMIT Internal Medicine; ATTEND Internal Medicine
DX: T81.41XA Infection following a procedure, superficial incisional surgical site, initial encounter (principal); L03.313 Cellulitis of chest wall; I49.5 Sick sinus syndrome; I48.0 Paroxysmal atrial fibrillation; I10 Essential (primary) hypertension; M19.90 Unspecified osteoarthritis, unspecified site; F41.9 Anxiety disorder, unspecified; R06.09 Other forms of dyspnea; F32.9 Major depressive disorder, single episode, unspecified; X58.XXXA Exposure to other specified factors, initial encounter; Z95.0 Presence of cardiac pacemaker; Z88.1 Allergy status to other antibiotic agents; Z88.0 Allergy status to penicillin; Z88.2 Allergy status to sulfonamides; Z79.01 Long term (current) use of anticoagulants; Z79.1 Long term (current) use of non-steroidal anti-inflammatories (NSAID); Z79.899 Other long term (current) drug therapy; Z88.8 Allergy status to other drugs, medicaments and biological substances; Z82.49 Family history of ischemic heart disease and other diseases of the circulatory system; Y92.009 Unspecified place in unspecified non-institutional (private) residence as the place of occurrence of the external cause
CPT/HCPCS: 36415; 80048; 80053; 80202; 81003; 83605; 83735; 83880; 85025; 85610; 85652; 86140; 87040; A9270-GY; J3370